=== PATIENT | female | born 1980 | race Caucasian/White ===

== ENCOUNTER 2020-12-03 12:40 | Emergency (ER) | payer OTHER ==
[2020-12-03] MEDS ORDERED: SODIUM CHLORIDE 1,000 ML IV STA (12:58)
[2020-12-03 13:04] VITALS: TEMP 98.7; BMI 25.7
[2020-12-03 13:37] LABS: BASO % 2.5 % (0-2.0); EOS % 2.2 % (0-4.5); HEMOGLOBIN 13.1 GM/dl (10.7-15.3); INR 1.13 (0.82-1.09); LYMPH % 39.9 % (8-40); MCH 29.7 pg (25.7-33.7); MCHC 33.5 g/dl (32.0-36.0); MEAN CELL VOLUME 88.8 fl (80-96); MEAN PLT VOLUME 9.5 fl (7.5-11.1); MONO % 10.1 % (3.8-10.2); NEUT % 45.3 % (42.8-82.8); PLATELET COUNT 198 10^3/uL (134-434); PROTHROMBIN TIME (PATIENT) 12.5 SEC (10.2-13.0); RBC 4.39 M/mm3 (3.60-5.2); RDW 12.6 % (11.6-15.6); WHITE BLOOD COUNT 4.5 K/mm3 (4.0-10.8)
[2020-12-03 13:38] LABS: ALBUMIN 4.1 g/dl (3.4-5.0); BILIRUBIN,TOTAL 0.6 mg/dl (0.2-1); CREATININE 0.9 mg/dl (0.55-1.3); TOT PROT 6.9 g/dl (6.4-8.2)
[2020-12-03 15:37] VITALS: BP 115/65; PULSE 69
== END 2020-12-03 15:30 | disposition home or self-care (01) ==
LOC: FER 12:40
PROC: 3E0337Z Introduction of Electrolytic and Water Balance Substance into Peripheral Vein, Percutaneous Approach (ICD-10-PCS; principal; 2020-12-03)
DX: R06.02 Shortness of breath (principal); M54.6 Pain in thoracic spine
CPT/HCPCS: 36415; 71275-TC; 80053; 84703; 85025; 85610; 87804; 87807; 93005; 93971-TC; 99285-25; C9803; Q9967; U0003; U0005